=== PATIENT | male | born 1970 ===

== ENCOUNTER 2021-03-29 20:02 | Emergency (ER) | payer BC, MEDICAID | END 2021-03-29 21:34 | disposition home or self-care (01) | LOC: EDSEX 20:02 → LL.ED 20:02 | DX: N39.0 Urinary tract infection, site not specified (principal); R03.0 Elevated blood-pressure reading, without diagnosis of hypertension; Z88.8 Allergy status to other drugs, medicaments and biological substances; Z72.0 Tobacco use | CPT/HCPCS: 81001; 87086; 87088; 87186; 99283 ==